=== PATIENT | female | born 1975 | race Two or more races ===

== ENCOUNTER 2021-09-13 21:37 | Inpatient (IN) | payer MEDICAID, OTHER ==
[~2021-09-13] VITALS: Ht 162.6 cm; Wt 65.5 kg
[2021-09-13 22:43] LABS: Basophils # (auto) 0 10 ^3/uL (0-0.2); Basophils % (auto) 0.3 % (0.0-2.0); Eosinophils # (auto) 0 10 ^3/uL (0-0.8); Eosinophils % (auto) 0.1 % (0.0-7.0); Hematocrit 39.5 % (36.0-46.0); Hemoglobin 13.6 g/dL (12.2-16.2); Lymphocytes # (auto) 1.9 10 ^3/uL (0.4-5.4); Lymphocytes % (auto) 17.3 % (10.0-50.0); Mean Corpuscular Hgb Conc. 34.5 g/dL (32.0-36.0); Mean Corpuscular Volume 81.2 fL (80.0-100.0); Monocytes # (auto) 0.9 10 ^3/uL (0-1.3); Neutrophils % (auto) 74.3 % (37.0-80.0); Nucleated Red Blood Cells % 0.1 %; Red Blood Cells 4.86 10^6/uL (4.0-5.20); Red Cell Distribution Width 14.8 % (11.8-14.3); White Blood Cell 10.7 10^3/uL (4.4-10.8)
[2021-09-13 23:10] LABS: Albumin 3.9 g/dL (3.4-5.0); BUN/Creatinine Ratio 21.2; Calcium 9.8 mg/dL (8.5-10.1); Magnesium 2.1 mg/dL (1.6-2.6); Potassium 4.5 mmol/L (3.5-5.1)
[2021-09-13 23:13] LABS: Bilirubin, Total 0.5 mg/dL (0.2-1.0)
[2021-09-13] MEDS ORDERED: LORazepam 0.5 MG TAB PO ONE (23:30)
[2021-09-13] MEDS ORDERED: ASPirin 81 mg TAB PO ONE (23:30)
[2021-09-14 00:11] LABS: INR 0.96 (0.9-1.15); Partial Thromboplastin Time 25.2 sec (23.6-33.0)
[2021-09-14] MEDS ORDERED: ATORVASTATIN 20 MG TAB PO ONE ×2 (07:15→13:30)
[2021-09-14] MEDS ORDERED: DEXTROSE (50%) 50ML SYRG IV PRN (07:15)
[2021-09-14] MEDS ORDERED: MORPHINE SULFATE INJECTION 2 MG/ML SYRG IV PRN (07:15)
[2021-09-14] MEDS ORDERED: ACETAMINOPHEN 325 MG TAB PO PRN (07:15)
[2021-09-14] MEDS ORDERED: NITROGLYCERIN 0.4 MG SL TAB SL PRN (07:15)
[2021-09-14] MEDS ORDERED: ONDANSETRON HCL 4 MG/2 ML VIAL IV PRN (07:15)
[2021-09-14] MEDS ORDERED: ENOXAPARIN SOD 80 MG/0.8ML SYRINGE SC ONE (08:00)
[2021-09-14] MEDS: PANTOPRAZOLE 40 MG TAB PO SCH (10:07)
[2021-09-14] MEDS: LISINOPRIL 10 MG TAB PO SCH (10:07)
[2021-09-14] MEDS ORDERED: BACL10TA PO (10:57)
[2021-09-14] MEDS ORDERED: NAP500T PO (10:57)
[2021-09-14] MEDS ORDERED: LISI40TA11 PO (11:02)
[2021-09-14] MEDS ORDERED: METF-370 PO (11:04)
[2021-09-14] MEDS ORDERED: DIPH-599 PO (11:06)
[2021-09-14] MEDS: ACCU-CHEK COMFORT CURVE STRIP VI SCH ×3 (11:42→21:59)
[2021-09-14] MEDS: InsuLIN REG 1unit/0.01ml Soln (100units/ml) SC SCH ×3 (11:42→22:03)
[2021-09-14] MEDS ORDERED: CLOPIDOGREL BISULFATE 75 MG TAB PO ONE (13:30)
[2021-09-14 13:55] LABS: Cholesterol 171 mg/dL (< 200); HDL Cholesterol 40 mg/dL (40-59); LDL Cholesterol 99 mg/dL (< 100); Triglycerides 299 mg/dL (< 150)
[2021-09-14] MEDS ORDERED: ASPirin 81 mg TAB PO ONE (15:00)
[2021-09-14] MEDS: ENOXAPARIN SOD 80 MG/0.8ML SYRINGE SC SCH (21:59)
[2021-09-14 22:00] VITALS: BP 101/55
[2021-09-14] MEDS ORDERED: ASPirin 81 mg TAB PO SCH (22:00)
[2021-09-15] VITALS (10 sets, daily range): BP systolic 101–122; BP diastolic 55–82
[2021-09-15] MEDS: TEMAZEPAM 15 MG CAP PO PRN ×2 (02:32→22:04)
[2021-09-15 06:01] LABS: Basophils # (auto) 0.1 10 ^3/uL (0-0.2); Basophils % (auto) 0.6 % (0.0-2.0); Eosinophils # (auto) 0.1 10 ^3/uL (0-0.8); Eosinophils % (auto) 0.6 % (0.0-7.0); Hematocrit 36.3 % (36.0-46.0); Hemoglobin 12.2 g/dL (12.2-16.2); Lymphocytes # (auto) 2.5 10 ^3/uL (0.4-5.4); Lymphocytes % (auto) 24.7 % (10.0-50.0); Mean Corpuscular Hemoglobin 27.6 pg (28.0-32.0); Mean Corpuscular Hgb Conc. 33.6 g/dL (32.0-36.0); Mean Corpuscular Volume 82.3 fL (80.0-100.0); Monocytes # (auto) 0.9 10 ^3/uL (0-1.3); Monocytes % (auto) 9.3 % (0.0-12.0); Neutrophils # (auto) 6.5 10 ^3/uL (1.6-8.6); Neutrophils % (auto) 64.8 % (37.0-80.0); Nucleated Red Blood Cells % 0.2 %; Red Blood Cells 4.42 10^6/uL (4.0-5.20); Red Cell Distribution Width 14.7 % (11.8-14.3)
[2021-09-15 06:18] LABS: Calcium 8.8 mg/dL (8.5-10.1)
[2021-09-15 06:21] LABS: BUN/Creatinine Ratio 26.5
[2021-09-15] MEDS: InsuLIN REG 1unit/0.01ml Soln (100units/ml) SC SCH ×4 (06:29→22:00)
[2021-09-15] MEDS: ACCU-CHEK COMFORT CURVE STRIP VI SCH ×4 (06:29→21:58)
[2021-09-15] MEDS ORDERED: LIDOCAINE 2%HCL (LOCAL ANESTH.) INJ 20ML MDV ONE (07:05)
[2021-09-15] MEDS ORDERED: ANGIOMAX 250 MG VIAL IV ONE (07:26)
[2021-09-15] MEDS ORDERED: fentaNYL CITRATE 100 MCG/2 ML VL ONE (07:27)
[2021-09-15] MEDS ORDERED: MIDAZOLAM HCL 2MG/2ML 2ml VIAL (1mg/ml) ONE (07:27)
[2021-09-15] MEDS ORDERED: SODIUM CHL 0.9% 50 ML ONE (07:27)
[2021-09-15] MEDS ORDERED: CLOPIDOGREL 300 MG TAB ONE (09:14)
[2021-09-15] MEDS: ENOXAPARIN SOD 80 MG/0.8ML SYRINGE SC SCH (10:00)
[2021-09-15] MEDS ORDERED: ENOXAPARIN SOD 40 MG/0.4 ML SYRINGE SC SCH (10:00)
[2021-09-15] MEDS: ASPirin 81 mg TAB PO SCH (11:38)
[2021-09-15] MEDS: PANTOPRAZOLE 40 MG TAB PO SCH (11:39)
[2021-09-15] MEDS: LISINOPRIL 10 MG TAB PO SCH (11:40)
[2021-09-15 12:12] LABS: Hepatitis B Surface Antibody Negative
[2021-09-15] MEDS ORDERED: ATORVASTATIN 20 MG TAB PO SCH ×2 (22:00)
[2021-09-16] MEDS ORDERED: HYDROcodone-ACET 5/325MG TAB PO PRN (02:00)
[2021-09-16 04:56] VITALS: BP 106/63
[2021-09-16] MEDS: ACCU-CHEK COMFORT CURVE STRIP VI SCH ×2 (06:14→11:28)
[2021-09-16] MEDS: InsuLIN REG 1unit/0.01ml Soln (100units/ml) SC SCH ×2 (06:25→11:28)
[2021-09-16] MEDS ORDERED: ASPI1TAB20 PO (08:38)
[2021-09-16] MEDS ORDERED: ATOR20TA50 PO (08:38)
[2021-09-16] MEDS ORDERED: CLOP75TA28 PO (08:38)
[2021-09-16] MEDS ORDERED: LISI20TA28 PO (08:47)
[2021-09-16] MEDS ORDERED: METF-489 PO (08:47)
[2021-09-16] MEDS ORDERED: CAR3125T PO (08:48)
[2021-09-16 08:57] LABS: Basophils # (auto) 0 10 ^3/uL (0-0.2); Basophils % (auto) 0.4 % (0.0-2.0); Eosinophils # (auto) 0 10 ^3/uL (0-0.8); Eosinophils % (auto) 0.4 % (0.0-7.0); Hemoglobin 12.5 g/dL (12.2-16.2); Lymphocytes # (auto) 1.8 10 ^3/uL (0.4-5.4); Lymphocytes % (auto) 19.8 % (10.0-50.0); Mean Corpuscular Hemoglobin 28.4 pg (28.0-32.0); Mean Corpuscular Hgb Conc. 34.6 g/dL (32.0-36.0); Mean Corpuscular Volume 82.1 fL (80.0-100.0); Monocytes # (auto) 0.7 10 ^3/uL (0-1.3); Monocytes % (auto) 7.4 % (0.0-12.0); Neutrophils # (auto) 6.5 10 ^3/uL (1.6-8.6); Nucleated Red Blood Cells % 0.1 %; Red Blood Cells 4.38 10^6/uL (4.0-5.20); Red Cell Distribution Width 14.8 % (11.8-14.3)
[2021-09-16 09:00] VITALS: BP 110/67
[2021-09-16 09:15] LABS: BUN/Creatinine Ratio 18.6; Calcium 8.8 mg/dL (8.5-10.1); Potassium 3.6 mmol/L (3.5-5.1)
[2021-09-16] MEDS: ASPirin 81 mg TAB PO SCH (09:15)
[2021-09-16] MEDS: PANTOPRAZOLE 40 MG TAB PO SCH (09:16)
[2021-09-16] MEDS: LISINOPRIL 10 MG TAB PO SCH (09:16)
[2021-09-16] MEDS ORDERED: CLOPIDOGREL BISULFATE 75 MG TAB PO SCH (10:00)
[2021-09-16 13:22] VITALS: BP_SYST 120; BP_SYST 176; BP_DIAS 72; BP_DIAS 98
== END 2021-09-16 13:23 | disposition home or self-care (01) | DRG 174 ==
LOC: ER 21:39 → TELE 09-14 07:03 → TELE-WESTW 09-14 21:50
PROVIDERS: ADMIT Nurse Practitioner; ATTEND Internal Medicine Nephrology
PROC: 027034Z Dilation of Coronary Artery, One Artery with Drug-eluting Intraluminal Device, Percutaneous Approach (ICD-10-PCS; principal; 2021-09-15)
PROC: 4A023N7 Measurement of Cardiac Sampling and Pressure, Left Heart, Percutaneous Approach (ICD-10-PCS; 2021-09-15)
PROC: B2111ZZ Fluoroscopy of Multiple Coronary Arteries using Low Osmolar Contrast (ICD-10-PCS; 2021-09-15)
PROC: B2151ZZ Fluoroscopy of Left Heart using Low Osmolar Contrast (ICD-10-PCS; 2021-09-15)
DX: I21.4 Non-ST elevation (NSTEMI) myocardial infarction (principal); E87.3 Alkalosis; E11.9 Type 2 diabetes mellitus without complications; I10 Essential (primary) hypertension; I20.9 Angina pectoris, unspecified; E78.5 Hyperlipidemia, unspecified
CPT/HCPCS: 36415; 71045; 80048; 80053; 80061; 82962; 83036; 83735; 83880; 84484; 85025; 85379; 85610; 85730; 86703; 86706; 86803; 87340; 87426; 92928; 93005; 93306; 93458; 96372; 99152; 99153; C1874; G0378; J1815; J2250; J2405

== ENCOUNTER 2022-06-17 16:10 | Emergency (ER) | payer MEDICAID ==
[~2022-06-17] VITALS: Ht 162.6 cm; Wt 81.8 kg
[~2022-06-17 16:10] MED LIST: ASPI1TAB20 PO; ATOR20TA50 PO; CAR3125T PO; CLOP75TA28 PO; LISI20TA28 PO; METF-370 PO; METF-489 PO
[2022-06-17 17:06] LABS: Basophils # (auto) 0 10 ^3/uL (0-0.2); Basophils % (auto) 0.4 % (0.0-2.0); Eosinophils # (auto) 0 10 ^3/uL (0-0.8); Eosinophils % (auto) 0.1 % (0.0-7.0); Hematocrit 39.1 % (36.0-46.0); Hemoglobin 12.6 g/dL (12.2-16.2); Lymphocytes # (auto) 1.2 10 ^3/uL (0.4-5.4); Lymphocytes % (auto) 13.7 % (10.0-50.0); Mean Corpuscular Hemoglobin 26.3 pg (28.0-32.0); Mean Corpuscular Hgb Conc. 32.1 g/dL (32.0-36.0); Mean Corpuscular Volume 81.9 fL (80.0-100.0); Monocytes % (auto) 10.7 % (0.0-12.0); Neutrophils # (auto) 6.7 10 ^3/uL (1.6-8.6); Neutrophils % (auto) 75.1 % (37.0-80.0); Red Blood Cells 4.78 10^6/uL (4.0-5.20); Red Cell Distribution Width 15.1 % (11.8-14.3); White Blood Cell 8.9 10^3/uL (4.4-10.8)
[2022-06-17 17:19] LABS: Partial Thromboplastin Time 30.3 sec (24.6-33.4)
[2022-06-17 17:23] LABS: Albumin 3.4 g/dL (3.4-5.0); Magnesium 2.1 mg/dL (1.6-2.6); Potassium 3.7 mmol/L (3.5-5.1)
[2022-06-17 17:27] LABS: BUN/Creatinine Ratio 9.7; Bilirubin, Total 0.5 mg/dL (0.2-1.0); Total Protein 7.7 g/dL (6.4-8.2)
[2022-06-18 00:43] VITALS: BP 139/74
== END 2022-06-18 00:48 | disposition home or self-care (01) ==
LOC: ER 16:12
DX: R07.89 Other chest pain (principal); I10 Essential (primary) hypertension; E11.9 Type 2 diabetes mellitus without complications; E78.5 Hyperlipidemia, unspecified; Z79.82 Long term (current) use of aspirin; Z79.01 Long term (current) use of anticoagulants; Z79.899 Other long term (current) drug therapy
CPT/HCPCS: 36415; 71045; 80053; 83735; 83880; 84443; 84484; 85025; 85610; 85730; 93005

== ENCOUNTER 2022-10-03 13:43 | Emergency (ER) | payer MEDICAID ==
[~2022-10-03] VITALS: Ht 162.6 cm; Wt 68.0 kg
[2022-10-03 14:46] LABS: Urine Bacteria FEW /hpf (None Seen); Urine Blood 2+ /uL (Negative); Urine Hyaline Cast FEW /lpf (0 - 2); Urine Specific Gravity 1.016 (1.001-1.035); Urine WBC 188 /hpf (0 - 5); Urine WBC Clumps PRESENT /hpf (None Seen)
[2022-10-03 15:05] LABS: Basophils # (auto) 0.1 10 ^3/uL (0-0.2); Basophils % (auto) 0.5 % (0.0-2.0); Eosinophils # (auto) 0.1 10 ^3/uL (0-0.8); Eosinophils % (auto) 0.8 % (0.0-7.0); Lymphocytes # (auto) 2.4 10 ^3/uL (0.4-5.4); Monocytes # (auto) 0.7 10 ^3/uL (0-1.3); Neutrophils % (auto) 71.4 % (37.0-80.0)
[2022-10-03 15:07] LABS: Hematocrit 40.9 % (36.0-46.0); Hemoglobin 13.6 g/dL (12.2-16.2); Mean Corpuscular Hemoglobin 26.9 pg (28.0-32.0); Mean Corpuscular Hgb Conc. 33.2 g/dL (32.0-36.0); Mean Corpuscular Volume 81.1 fL (80.0-100.0); Monocytes % (auto) 6.3 % (0.0-12.0); Nucleated Red Blood Cells % 0.1 %; Red Blood Cells 5.05 10^6/uL (4.0-5.20); Red Cell Distribution Width 14.5 % (11.8-14.3); White Blood Cell 11.2 10^3/uL (4.4-10.8)
[2022-10-03 15:29] LABS: Albumin 3.5 g/dL (3.4-5.0); BUN/Creatinine Ratio 16.7; Calcium 9.3 mg/dL (8.5-10.1); Potassium 4.2 mmol/L (3.5-5.1)
[2022-10-03 15:32] LABS: Bilirubin, Total 0.3 mg/dL (0.2-1.0)
[2022-10-03] MEDS ORDERED: IOHEXOL 300 MG/ML 100ML BOTTLE IJ ONE (16:30)
[2022-10-03] MEDS ORDERED: CEPH-322 PO (19:49)
[2022-10-03 20:46] VITALS: BP 154/95
== END 2022-10-03 21:05 | disposition home or self-care (01) ==
LOC: ER 13:43
DX: N39.0 Urinary tract infection, site not specified (principal); E11.9 Type 2 diabetes mellitus without complications; I10 Essential (primary) hypertension; Z90.710 Acquired absence of both cervix and uterus; Z79.84 Long term (current) use of oral hypoglycemic drugs; Z79.899 Other long term (current) drug therapy
CPT/HCPCS: 36415; 74177; 80053; 81001; 81025; 83690; 83735; 85025; 93005; 99285; Q9967

== ENCOUNTER 2025-10-18 16:05 | Emergency (ER) | payer MEDICAID ==
[~2025-10-18] VITALS: Ht 162.6 cm; Wt 64.0 kg
[~2025-10-18 16:05] MED LIST changes: +ACET-1304 PO; +CEPH250C PO; +CEPH500T PO; +IBUP1TAB5 PO; -LISI20TA28 PO; +LISI20TA56 PO
[2025-10-18 19:07] LABS: Urine Protein, UAD 2+ (Negative)
[2025-10-18 19:12] LABS: Hematocrit 41.4 % (36.0-46.0); Hemoglobin 13.8 g/dL (12.2-16.2); Mean Corpuscular Hemoglobin 27.2 pg (28.0-32.0); Mean Corpuscular Volume 81.2 fL (80.0-100.0); Nucleated Red Blood Cells % 0.0 %
[2025-10-18 19:27] LABS: Alanine Aminotransferase 38 U/L (7-40); Albumin 4.4 g/dL (3.2-4.8); Alkaline Phosphatase 243 U/L (46-116); Anion Gap 12 (5-15); BUN/Creatinine Ratio 15.6 (10.0-20.0); Bilirubin, Total 0.8 mg/dL (0.2-1.0); Blood Urea Nitrogen 15 mg/dL (9-23); Calcium 9.2 mg/dL (8.7-10.4); Carbon Dioxide 21 mmol/L (20-31); Chloride 91 mmol/L (98-107); Glucose 334 mg/dL (74-106); Potassium 3.5 mmol/L (3.5-5.1); Sodium 124 mmol/L (136-145); Total Protein 7.9 g/dL (5.7-8.2)
--- NOTE | 2025-10-18 19:34 | ED.PDOC ---
History of Present Illness HPI Comments 50-year-old, Maltese-speaking female presents with chief complaint of fever, dysuria, and exacerbation of chronic, mid-lower back pain since 10/14/2025. Chief Complaint: Urinary Time Seen by MD: 18:30 Primary Care Provider: Unknown Reviewed Notes: Nurses Notes Allergies: Coded Allergies: NO KNOWN ALLERGIES (Unverified , 09/14/21) Home Meds Active Scripts Sitagliptin Phosphate (Januvia) 100 Mg Tab, 1 TAB PO DAILY, #90 TAB 3 Refills Prov:EDWIN MAR MD 10/18/25 Sulfamethoxazole W/Trimethopri (Bactrim Ds Tablet) 1 Tab Tb, 1 TAB PO BID for 10 Days, #20 TAB Prov:EDWIN MAR MD 10/18/25 Ibuprofen Micronized (Ibuprofen) 600 Mg Tab, 600 MG PO Q6HP PRN, #30 TAB prn fever or pain Prov:PATRICIA CHRISTIANSEN MD 07/13/24 Acetaminophen (Tylenol Extra Strength) 500 Mg Tab, 1000 MG PO Q6HP PRN, #30 TAB prn fever or pain Prov:PATRICIA CHRISTIANSEN MD 07/13/24 Cephalexin Monohydrate (Cephalexin) 500 Mg Tab, 1 TAB PO QID for 10 Days, #40 TAB Prov:PATRICIA CHRISTIANSEN MD 07/13/24 Cephalexin (KEFLEX CAPSULE) 250 Mg Cp, 250 MG PO QID for 7 Days, #28 TAB Prov:VALERIO BARTHOLOMEW MD 10/03/22 Carvedilol (Coreg) 3.125 Mg Tab, 1 TAB PO BID for 30 Days, #60 TAB 1 Refill Prov:BROOKE MARRERO MD 09/16/21 Lisinopril (Lisinopril) 20 Mg Tab, 1 TAB PO DAILY for 30 Days, #30 TAB 1 Refill Prov:BROOKE MARRERO MD 09/16/21 Metformin Hydrochloride (METFORMIN HCL ER) 500 Mg Tab, 1 TAB PO DAILY for 30 Days, #30 TAB 1 Refill Prov:BROOKE MARRERO MD 09/16/21 Aspirin (Aspir-81) 81 Mg Tab, 1 TAB PO DAILY for 30 Days, #30 TAB 1 Refill Prov:BROOKE MARRERO MD 09/16/21 Atorvastatin Calcium (ATORVASTATIN CALCIUM) 20 Mg Tab, 2 TAB PO HS for 30 Days, #60 TAB 1 Refill Prov:BROOKE MARRERO MD 09/16/21 Clopidogrel Bisulfate (Plavix) 75 Mg Tab, 75 MG PO DAILY for 30 Days, #30 TAB 2 Refills Prov:BROOKE MARRERO MD 09/16/21 Reported Medications Metformin Hydrochloride (Metformin Hcl) 500 Mg Tab, 1000 MG PO DAILY for 30 Days, MG 09/14/21 Information Source: Patient Mode of Arrival: Ambulatory Severity: Moderate Timing: Days Duration: Since onset Prehospital treatment: None Past Medical History PAST MEDICAL HISTORY: CAD, DM, High Lipids, HTN Surgical History: Cholecystectomy, Hysterectomy, PTCA [employer] History: Denies all [employer] Hx Family History Family History: Reviewed,noncontributory to illness Social History Smoker: Non-Smoker Alcohol: Denies ETOH Use Drugs: Denies Drug Use Lives In: Home All Other Systems: Reviewed and Negative (Comprehensive review of systems are negative unless otherwise stated in HPI) Physical Exam General Appearance: No Apparent Distress, Normal HEENT: Normal ENT Inspection, Pharynx Normal, TMs Normal Neck: Full Range of Motion, Non-Tender, Normal, Normal Inspection Respiratory: Chest Non-Tender, Lungs Clear, No Accessory Muscle Use, No Respiratory Distress, Normal Breath Sounds Cardiovascular: No Edema, No JVD, No Murmur, No Gallop, Normal Peripheral Pulses, Regular Rate/Rhythm Breast Exam: Deferred Gastrointestinal: No Organomegaly, Non Tender, No Pulsatile Mass, Normal Bowel Sounds, Soft Genitalia: Deferred Pelvic: Deferred Rectal: Deferred Extremities: No calf tenderness, Normal capillary refill, Normal inspection, Normal range of motion, Non-tender, No pedal edema Musculoskeletal : Apperance: Normal Neurologic: Alert, facility operations manager II-XII nml as Tested, No Motor Deficits, Normal Affect, Normal Mood, No Sensory Deficits Cerebellar Function: Normal Reflexes: Normal Skin: Dry, Normal Color, Warm Lymphatic: No Adenopathy Was a procedure done? Was a procedure done?: No Differential Dx Considerations may include: UTI, electrolyte imbalance, dehydration, chronic back pain exacerbation, among others X-Ray, Labs, Meds, VS Vital Signs Date Time Temp Pulse Resp B/P (MAP) Pulse Ox O2 Delivery O2 Flow Rate FiO2 10/18/25 23:13 99.5 92 16 107/80 (89) 100 99.5 10/18/25 20:35 97.9 98 18 122/81 (95) 99 97.9 10/18/25 19:47 98.2 113 20 124/80 (95) 98 98.2 10/18/25 16:08 99.9 105 18 148/96 98 99.9 Lab Test 10/18/25 23:24 10/18/25 19:00 10/18/25 18:57 Range/Units POC Glucose 322 H 70-106 mg/dl Urine Color Yellow Yellow Urine Clarity Turbid H Clear Urine pH 6.0 5.0-9.0 Urine Specific [place] 1.032 1.001-1.035 Urine Protein 2+ H Negative Urine Ketones 2+ H Negative Urine Blood 2+ H Negative /uL Urine Nitrite Negative Negative Urine Bilirubin Negative Negative Urine Urobilinogen 12 H Negative mg/dL Urine Leukocyte Esterase 2+ Negative /uL Urine RBC 19 0 - 4 /hpf Urine Microscopic WBC 89 H 0-5 /HPF Urine Squamous Epithelial Cells Few <5 /hpf Urine Bacteria Few H None Seen /hpf Urine Glucose 4+ H Normal mg/dL Urine Test Negative Negative White Blood Count 14.5 H 4.4-10.8 10^3/uL Red Blood Count 5.09 4.0-5.20 10^6/uL Hemoglobin 13.8 12.2-16.2 g/dL Hematocrit 41.4 36.0-46.0 % Mean Corpuscular Volume 81.2 80.0-100.0 fL Mean Corpuscular Hemoglobin 27.2 L 28.0-32.0 pg Mean Corpuscular Hemoglobin Concent 33.5 32.0-36.0 g/dL Red Cell Distribution Width 14.2 11.8-14.3 % Platelet Count 270 140-450 10^3/uL Mean Platelet Volume 9.2 6.9-10.8 fL Neutrophils (%) (Auto) 83.4 H 37.0-80.0 % Lymphocytes (%) (Auto) 5.9 L 10.0-50.0 % Monocytes (%) (Auto) 10.5 0.0-12.0 % Eosinophils (%) (Auto) 0.0 0.0-7.0 % Basophils (%) (Auto) 0.2 0.0-2.0 % Neutrophils # (Auto) 12.1 H 1.6-8.6 10 ^3/uL Lymphocytes # (Auto) 0.9 0.4-5.4 10 ^3/uL Monocytes # (Auto) 1.5 H 0-1.3 10 ^3/uL Eosinophils # (Auto) 0 0-0.8 10 ^3/uL Basophils # (Auto) 0 0-0.2 10 ^3/uL Nucleated Red Blood Cells 0.0 % Sodium Level 124 L 136-145 mmol/L Potassium Level 3.5 3.5-5.1 mmol/L Chloride Level 91 L 98-107 mmol/L Carbon Dioxide Level 21 20-31 mmol/L Anion Gap 12 5-15 Blood Urea Nitrogen 15 9-23 mg/dL Creatinine 0.96 0.550-1.02 mg/dL Glomerular Filtration Rate Calc 71 >90 mL/min BUN/Creatinine Ratio 15.6 10.0-20.0 Serum Glucose 334 H 74-106 mg/dL Lactic Acid Level 1.4 0.4-2.0 mmol/L Calcium Level 9.2 8.7-10.4 mg/dL Total Bilirubin 0.8 0.2-1.0 mg/dL Aspartate Amino Transferase (AST) 21 13-40 U/L Alanine Aminotransferase (ALT) 38 7-40 U/L Alkaline Phosphatase 243 H 46-116 U/L Total Protein 7.9 5.7-8.2 g/dL Albumin 4.4 3.2-4.8 g/dL Current Medications Medications (Trade) Dose Ordered Sig/Keisha Route Start Time Stop Time Status Last Admin Sodium Chloride 1,000 ml @ 1,000 mls/hr Q1H ONCE IVB 10/18/25 18:45 10/18/25 19:44 DC 10/18/25 20:18 Ketorolac Tromethamine (Toradol Injection) 15 mg ONCE ONCE IV 10/18/25 18:45 10/18/25 18:46 DC 10/18/25 20:18 Ceftriaxone Sodium/Dextrose 50 ml @ 50 mls/hr ONCE ONCE IV 10/18/25 21:30 10/18/25 22:29 DC 10/18/25 21:[address] [address] Ph: [phone] DIAGNOSTIC IMAGING Diagnostic Imaging Report : [id number] Signed PATIENT: KAELA PINON ACCT: [id number] UNIT: [id number] : 1975 LOC: ER ROOM / BED: / AGE / SEX: 50 / F ADM STATUS: REG ER SERVICE [id number] ORDERING PHYSICIAN: EDWIN MAR MD PROCEDURE(s): ABPL - CT AB PEL WO CON-NO ORAL OR IV REASON: left flank pain ORDER NUMBER(s): [id number], ACCESSION NUMBER(s): [id number] COMPUTERIZED TOMOGRAPHY ABDOMEN AND PELVIS WITHOUT CONTRAST REASON FOR EXAM: left flank pain COMPARISON: None TECHNIQUE: Spiral scans were acquired from the diaphragm to the symphysis pubis without intravenous contrast administration. 2-D coronal and sagittal reformatted images were provided. Radiation optimization: All CT scans at this facility use at least one of these dose optimization techniques: Automated exposure control mA and/or kV adjustment per patient size (includes targeted exams where dose is matched to clinical indication) or iterative reconstruction. RADIATION DOSE: CTDI: 8 mGy DLP: 505 mGy-cm FINDINGS: Respiratory motion artifact degrades evaluation. The visualized lung bases are grossly clear. There is no significant pleural effusion. There is no pericardial effusion. The spleen is not enlarged. The liver is normal in size and contour. Evaluation of the abdominal organs is suboptimal in the absence of intravenous contrast. The gallbladder is not seen and is likely absent. Unenhanced appearance of the pancreas is grossly unremarkable. The adrenal glands appear normal. The kidneys are similar in size. There is no hydronephrosis of either kidney. There is mild nonspecific left perinephric stranding. No renal, ureteral, or bladder calculus is identified. The urinary bladder is grossly unremarkable. The uterus is absent. The left ovary is unremarkable. There is a 2.9 cm follicle within the right ovary which may be a cause of pain. No free fluid is identified in the abdomen or pelvis. No pathologic lymphadenopathy is identified by size criteria. There is no abdominal aortic aneurysm. The colonic stool burden is small. The appendix is normal. There is no distention of the small bowel. No acute osseous abnormality is identified. IMPRESSION: No renal, ureteral, or bladder calculus. No hydronephrosis of either kidney. There is mild, nonspecific left perinephric stranding. Correlate clinically for possible pyelonephritis. There is a 2.9 cm right ovarian follicle which may be a cause of pain. No free fluid identified in the abdomen or pelvis. ATED BY: ASH OSBORNE MD DICTATED DATE/TIME: 10/18/252030 SIGNED BY: ASH OSBORNE MD SIGNED DATE/TIME: 10/18/252030 CC: Time of 1ST Reevaluation: 19:00 Reevaluation 1ST: Unchanged Patient Education/Counseling: Diagnosis, Treatment, Need For Follow Up Family Education/Counseling: No Family Present SEPSIS Sepsis Screen Date sepsis recognized/suspect: Oct 18, 2025 Time Sepsis recognized/suspect: 1609 Recent Procedure: No On Antibiotic Therapy: No Respiratory Rate >20: No Heart Rate >90: No Temp<36 C (96.8 F) or >38.3 C: No SBP <90 or MAP <65 mmHG: No New Acute Mental Status Change: No Is the patient on CPAP, BIPAP,: No Physician Orders Ct Ab Pel Wo Con-No Oral Or Iv (10/18/25 18:41) Blood Culture (10/18/25 18:41) Vital Signs Date Time Temp Pulse Resp B/P (MAP) Pulse Ox O2 Delivery O2 Flow Rate FiO2 10/18/25 23:13 99.5 92 16 107/80 (89) 100 99.5 10/18/25 20:35 97.9 98 18 122/81 (95) 99 97.9 10/18/25 19:47 98.2 113 20 124/80 (95) 98 98.2 10/18/25 16:08 99.9 105 18 148/96 98 99.9 Laboratory Tests Test 10/18/25 18:57 Lactic Acid Level 1.4 mmol/L (0.4-2.0) White Blood Count 14.5 10^3/uL (4.4-10.8) H Medications Medications Dose Ordered Sig/Keisha Route Start Time Stop Time Status Last Admin Dose Admin Ceftriaxone Sodium/Dextrose 50 ml @ 50 mls/hr ONCE ONCE IV 10/18/25 21:30 10/18/25 22:29 DC 10/18/25 21:39 Ketorolac Tromethamine 15 mg ONCE ONCE IV 10/18/25 18:45 10/18/25 18:46 DC 10/18/25 20:18 Sodium Chloride 1,000 ml @ 1,000 mls/hr Q1H ONCE IVB 10/18/25 18:45 10/18/25 19:44 DC 10/18/25 20:18 Departure 1 Departure Time of Disposition: 21:00 Impression: Primary Impression: UTI (urinary tract infection) Additional Impression: Pyelonephritis Disposition: HOME / SELF CARE / HOMELESS Condition: Stable e-Prescriptions Sitagliptin Phosphate (Januvia) 100 Mg Tab 1 TAB PO DAILY, #90 TAB 3 Refills Prov: EDWIN MAR MD 10/18/25 Sulfamethoxazole W/Trimethopri (Bactrim Ds Tablet) 1 Tab Tb 1 TAB PO BID for 10 Days, #20 TAB Prov: EDWIN MAR MD 10/18/25 Discharged With: Self Critical Care Note Critical Care Time?: No Stability Stability form required: No Heart Score Heart Score: Heart Score Response (Comments) Value History N/A 0 EKG N/A 0 Age N/A 0 Risk Factors N/A 0 Troponin N/A 0 Total 0 I personally scribed for EDWIN MAR MD ([email or web address]) on 10/18/25 at 19:34. Electronically submitted by Jon Curtis ([email or web address]). I personally scribed for EDWIN MAR MD ([email or web address]) on 10/18/25 at 23:21. Electronically submitted by Jon Curtis ([email or web address]). EDWIN MAR MD Oct 18, 2025 19:34
[2025-10-18] MEDS: KETOROLAC TROMETH 30 MG/ML 1ML VIAL IV ONE (20:18)
[2025-10-18] MEDS: SODIUM CHLORIDE 0.9% 1,000 ML IVB ONE (20:18)
--- NOTE | 2025-10-18 20:34 | DVH ---
COMPUTERIZED TOMOGRAPHY ABDOMEN AND PELVIS WITHOUT CONTRAST REASON FOR EXAM: left flank pain COMPARISON: None TECHNIQUE: Spiral scans were acquired from the diaphragm to the symphysis pubis without intravenous contrast administration. 2-D coronal and sagittal reformatted images were provided. Radiation optimization: All CT scans at this facility use at least one of these dose optimization techniques: Automated exposure control mA and/or kV adjustment per patient size (includes targeted exams where dose is matched to clinical indication) or iterative reconstruction. RADIATION DOSE: CTDI: 8 mGy DLP: 505 mGy-cm FINDINGS: Respiratory motion artifact degrades evaluation. The visualized lung bases are grossly clear. There is no significant pleural effusion. There is no pericardial effusion. The spleen is not enlarged. The liver is normal in size and contour. Evaluation of the abdominal organs is suboptimal in the absence of intravenous contrast. The gallbladder is not seen and is likely absent. Unenhanced appearance of the pancreas is grossly unremarkable. The adrenal glands appear normal. The kidneys are similar in size. There is no hydronephrosis of either kidney. There is mild nonspecific left perinephric stranding. No renal, ureteral, or bladder calculus is identified. The urinary bladder is grossly unremarkable. The uterus is absent. The left ovary is unremarkable. There is a 2.9 cm follicle within the right ovary which may be a cause of pain. No free fluid is identified in the abdomen or pelvis. No pathologic lymphadenopathy is identified by size criteria. There is no abdominal aortic aneurysm. The colonic stool burden is small. The appendix is normal. There is no distention of the small bowel. No acute osseous abnormality is identified. IMPRESSION: No renal, ureteral, or bladder calculus. No hydronephrosis of either kidney. There is mild, nonspecific left perinephric stranding. Correlate clinically for possible pyelonephritis. There is a 2.9 cm right ovarian follicle which may be a cause of pain. No free fluid identified in the abdomen or pelvis.
[2025-10-18] MEDS ORDERED: BACDST PO (21:18)
[2025-10-18] MEDS ORDERED: SITA100T7 PO (21:18)
[2025-10-18 23:13] VITALS: BP 107/80; PULSE 92; RESP 16; TEMP 99.5; O2SAT 100
== END 2025-10-18 23:34 | disposition home or self-care (01) ==
LOC: ER 16:05
DX: N39.0 Urinary tract infection, site not specified (principal); N12 Tubulo-interstitial nephritis, not specified as acute or chronic; I10 Essential (primary) hypertension; E11.9 Type 2 diabetes mellitus without complications; Z79.82 Long term (current) use of aspirin; Z79.84 Long term (current) use of oral hypoglycemic drugs; Z79.899 Other long term (current) drug therapy; Z90.49 Acquired absence of other specified parts of digestive tract; Z90.710 Acquired absence of both cervix and uterus
CPT/HCPCS: 36415; 74176; 80053; 81001; 81025; 82947; 82962; 83605; 85025; 87040; 96361; 96365; 96375; 99285; J0696; J1885; J7030